=== PATIENT | male | born 1970 | race Caucasian/White ===

== ENCOUNTER 2017-04-28 12:06 | Emergency (ER) | payer MEDICAID, OTHER ==
[~2017-04-28] VITALS: Ht 165.1 cm; Wt 72.0 kg
[2017-04-28 12:15] VITALS: Ht 165.1 cm; Wt 72.0 kg
[2017-04-28] MEDS ORDERED: KETOROLAC 60 MG INJ IM STA (14:06)
--- NOTE | 2017-04-28 14:36 | RADRPT ---
PROCEDURE: Left knee x-ray CLINICAL INDICATION: Pain. TECHNIQUE: AP, lateral and oblique views of the knee were obtained. COMPARISON: None FINDINGS: There is an old healed internally fixated fracture involving the proximal metaphysis and diaphysis o f the left tibia. There is an old healed fracture deformity to the proximal diaphysis and metaphysi s of the left fibula. There are small spurs off of the articular surface of the patella. There is a joint space effusion. IMPRESSION: 1. There is a moderate joint space effusion. 2. Old internally fixated fracture to the proximal diaphysis and metaphysis of the left tibia. 3. Old healed fracture deformity to the proximal diaphysis and metaphysis of the left fibula. RPTAT:AAJJ Physician Germania Date Time Electronically viewed and signed by Physician Germania on 04/28/2017 14:36 /
[2017-04-28] MEDS ORDERED: IBUP-1542 PO (15:03)
[2017-04-28] MEDS ORDERED: TRAM50TA2 PO (15:03)
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
== END 2017-04-28 15:24 | disposition home or self-care (01) ==
LOC: FTE 12:06
DX: M25.562 Pain in left knee (principal)
CPT/HCPCS: 73562; 96372; J1885; Z7502

== ENCOUNTER 2019-04-29 11:10 | Emergency (ER) | payer OTHER ==
[~2019-04-29] VITALS: Wt 68.0 kg
[~2019-04-29 11:10] MED LIST: IBUP-1542 PO; TRAM50TA2 PO
[2019-04-29 11:13] VITALS: BP 140/67; PULSE 84; RESP 18
[2019-04-29] MEDS ORDERED: HYDR-4011 PO (13:04)
[2019-04-29] MEDS ORDERED: NAPR-985 PO (13:04)
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
== END 2019-04-29 13:18 | disposition home or self-care (01) ==
LOC: FTE 11:10
DX: M25.561 Pain in right knee (principal); M25.562 Pain in left knee
CPT/HCPCS: 73562; Z7502